=== PATIENT | female | born 1980 | race Caucasian/White ===

== ENCOUNTER 2020-12-18 17:38 | Emergency (ER) | payer BC ==
[2020-12-18] MEDS ORDERED: Sodium Chloride 0.9% 1,000 ML IV ONE (18:00)
[2020-12-18] MEDS ORDERED: Ondansetron 4 MG/2 ML SDV IVPUSH ONE (18:00)
[2020-12-18 18:57] LABS: CARBON DIOXIDE,CO2 19.9 mmol/L (21.0-32.0); POTASSIUM,K 3.7 mmol/L (3.5-5.1)
[2020-12-18] MEDS ORDERED: Calcium Chloride 10% 1 GM/10 ML Syringe IVPUSH ONE (19:12)
[2020-12-18 19:22] LABS: ACETAMINOPHEN <2.0 ug/mL
[2020-12-18] MEDS ORDERED: Calcium Carbonate 500 MG Tab.Chew PO ONE (19:46)
--- NOTE | 2020-12-18 20:25 | EDM.PDOC ---
<Amparo Garcia - Last Filed: 12/19/20 04:22> ED HPI GENERAL MEDICAL PROBLEM - General Chief Complaint: Behavioral/Psych Stated Complaint: SUICIDAL Time Seen by Provider: 12/18/20 17:50 - Related Data Allergies Allergy/AdvReac Type Severity Reaction Status Date / Time No Known Allergies Allergy Verified 12/18/20 18:03 Home Meds: Home Meds cloNIDine [Catapres] 0.1 mg PO ASDIRECTED 12/18/20 [History] Course - Re-Assessments/Exams Free Text/Narrative Re-Assessment/Exam: 12/19/20 04:23 Received the patient in signout from Natalia Farah pending alcohol clearance and sober reassessment for suicidality. The patient has been observed for many hours here. She has had no suicidal ideation throughout her hospital stay. Her alcohol level has been appropriately trending downward. Her most recent alcohol level drawn at 2:30 AM was 133. She was observed for an additional 2 hours and is clinically sober at this time. We discussed her symptoms. She reports she is not suicidal, has no thoughts to harm or kill herself. She reports she was just stating this as a gesture to her significant other and that she did not really mean it. She would like to be discharged home. Departure - Departure Time of Disposition: 04:26 Disposition: Home, Self-Care 01 Clinical Impression: Dehydration, Hypocalcemia Alcohol intoxication Qualifiers: Complication of substance-induced condition: with unspecified complication Qualified Code(s): F10.929 - Alcohol use, unspecified with intoxication, unspecified - Discharge Information Instructions: Binge-Drinking Information, Adult, Alcohol Intoxication, [id number] Referrals: PCP,None [Primary Care Provider] - Forms: ED Department Discharge Additional Instructions: Please follow-up with the psychiatry group listed on the following paper. If you develop any thoughts of hurting yourself or you start to feel suicidal, please call 911 or go to the nearest hospital. Please cut back on alcohol use. Return to the ER if you develop any other concerning or worsening symptoms. The following information is given to patients seen in the emergency department who are being discharged to home. This information is to outline your options for follow-up care. We provide all patients seen in our emergency department with a follow-up referral. The need for follow-up, as well as the timing and circumstances, are variable depending upon the specifics of your emergency department visit. If you don't have a primary care physician on staff, we will provide you with a referral. We always advise you to contact your personal physician following an emergency department visit to inform them of the circumstance of the visit and for follow-up with them and/or the need for any referrals to a consulting specialist. The emergency department will also refer you to a specialist when appropriate. This referral assures that you have the opportunity for follow-up care with a specialist. All of these measure are taken in an effort to provide you with opt imal care, which includes your follow-up. Under all circumstances we always encourage you to contact your private physician who remains a resource for coordinating your care. When calling for follow-up care, please make the office aware that this follow-up is from your recent emergency room visit. If for any reason you are refused follow-up, please contact the [facility] Emergency Department at and asked to speak to the emergency department charge nurse. [facility] [address] [place] [address] [place] [address] <Sara Farah - Last Filed: 12/19/20 10:06> ED HPI GENERAL MEDICAL PROBLEM - General Source of Information: Reports: Patient, Police History Limitations: Reports: No Limitations - History of Present Illness INITIAL COMMENTS - FREE TEXT/NARRATIVE: HISTORY AND PHYSICAL: History of present illness: Patient is a 40-year-old female presents emergency room today with law enforcement for concern of suicidal ideation. Upon arrival to the ED, patient declines suicidal ideation or plan and states that she has been ignored by her boyfriend so she was trying to get his attention so made a Facebook post telling him that she was going to kill her self. Patient states that this was stupid in retrospect and states that the only reason she had made the statement was hoping that he would start calling her and come to see her and stop ignoring her. Patient states that she has never had suicidal thoughts or a plan and states that she does not have suicidal thoughts or plan now. She has made this same story statement to myself, and nursing staff multiple times when asked multiple different ways. Patient states that she has been drinking alcohol today because she was upset with her boyfriend and states this is why she made a stupid statement such as this. Patient states that she was just saying it to get attention from her boyfriend. Patient states that she has been drinking consistently since Monday but states that she does not typically drink. Patient denies fever, chills, chest pain, shortness of breath, or cough. Denies headache, neck stiff ness, change in vision, syncope, or near syncope. Denies nausea, vomiting, abdominal pain, diarrhea, constipation, or dysuria. Has not noted any blood in urine or stool. Patient has been eating and drinking appropriately. Review of systems: As per history of present illness and below otherwise all systems reviewed and negative. Past medical history: As per history of present illness and as reviewed below otherwise noncontributory. Surgical history: As per history of present illness and as reviewed below otherwise noncontributory. Social history: See social history for further information Family history: As per history of present illness and as reviewed below otherwise noncontributory. Physical exam: General: Patient is alert, oriented, and in no acute distress. Patient laying comfortably on exam table. Patient is tachycardic 124 on exam, otherwise, vitally stable and reviewed by me. HEENT: Atraumatic, normocephalic, pupils equal and reactive bilaterally, negative for conjunctival pallor or scleral icterus, mucous membranes moist, TMs normal bilaterally, throat clear, neck supple, nontender, trachea midline. No drooling or trismus noted. No meningeal signs. No hot potato voice noted. Lungs: Clear to auscultation, breath sounds equal bilaterally, chest nontender. Heart: S1S2, regular rate and rhythm without overt murmur Abdomen: Soft, nondistended, nontender. Negative for masses or hepatosplenomegaly. Negative for costovertebral tenderness. Pelvis: Stable nontender. Genitourinary: Deferred. Rectal: Deferred. Skin: Intact, warm, dry. No lesions or rashes noted. Extremities: Atraumatic, negative for cords or calf pain. Neurovascular unremarkable. Neuro: Awake, alert, oriented. Cranial nerves II through XII unremarkable. Cerebellum unremarkable. Motor and sensory unremarkable throughout. Exam nonfocal. Notes: Patient is a 40-year-old female who resents emergency room today via law enforcement after making a statement on social media that she had wanted to kill her self. Upon arrival to the ED, patient denies any suicidal ideation or plan and states that she was merely making the statement to her boyfriend in hopes that he would pay her some attention. However, patient does state that she did write this and make the statement. Patient states that she has also been drinking, she does smell of alcohol but able to carry on a normal conversation and ambulate in the ED without assistance. Patient is placed on one-on-one observation and suicidal precautions while awaiting work-up. Mild derangements of CBC unremarkable. CMP shows hypocalcemia with corrected calcium of 7.5, otherwise mild derangements of CMP unremarkable. hCG is negative. Urinalysis shows 15 ketones with 5-9 red blood cells and 30 protein, otherwise urinalysis clear. Urine drug screen is unremarkable. Acetaminophen negative. Salicylate negative. ETOH shows alcohol intoxication at 410 I did call and speak to tele psychiatry production machine computer operator, Dr. Chairez, and thoroughly discussed patient's case. He would like patient to have a DOUG of 100 or less without suicidal ideation before discharging patient safely to home. Patient did receive 1 L normal saline bolus with improvement of her heart rate to 107. However, patient adamantly requesting the IV to be removed and does not want to receive calcium via her IV requesting it to be removed. Will give patient p.o. calcium and continue oral rehydration. Repeat ETOH 290- Dr. Garcia has assumed care of patient and will follow remaining disposition for patient Diagnostics: Mental health evaluation labs Therapeutics: Normal saline, calcium Prescription: Impression: Alcohol intoxication Hypocalcemia Dehydration Plan: Definitive disposition and diagnosis as appropriate pending reevaluation and review of above. left hand Pain Score (Numeric/FACES): 2 Past Medical History Psychiatric History: Reports: Anxiety - Infectious Disease History Infectious Disease History: Reports: None Social & Family History - Family History Family Medical History: No Pertinent Family History - Tobacco Use Tobacco Use Status *Q: Never Tobacco User - Recreational Drug Use Recreational Drug Use: No ED ROS GENERAL - Review of Systems Review Of Systems: Comprehensive ROS is negative, except as noted in HPI. ED EXAM, GENERAL - Physical Exam Exam: See Below (see dictation) Course - Vital Signs Last Recorded V/S: Last Vital Signs Temp 97.3 F 12/19/20 04:00 Pulse 98 12/19/20 04:00 Resp 18 12/19/20 04:00 BP 121/81 12/19/20 04:00 Pulse Ox 98 12/19/20 04:00 - Orders/Labs/Meds Labs: Laboratory Tests 12/18/20 12/18/20 12/18/20 Range/Units 18:30 18:30 18:30 WBC 5.81 (4.0-11.0) K/uL RBC 4.68 (4.30-5.90) M/uL Hgb 14.0 (12.0-16.0) g/dL Hct 40.7 (36.0-46.0) % MCV 87.0 (80.0-98.0) fL MCH 29.9 (27.0-32.0) pg MCHC 34.4 (31.0-37.0) g/dL RDW Std Deviation 48.1 (28.0-62.0) fl RDW Coeff of Lore 15 (11.0-15.0) % Plt Count 346 (150-400) K/uL MPV 8.90 (7.40-12.00) fL Neut % (Auto) 52.4 (48.0-80.0) % Lymph % (Auto) 43.9 H (16.0-40.0) % Mineral % (Auto) 2.4 (0.0-15.0) % Eos % (Auto) 0.3 (0.0-7.0) % Baso % (Auto) 1.0 (0.0-1.5) % Neut # (Auto) 3.0 (1.4-5.7) K/uL Lymph # (Auto) 2.6 H (0.6-2.4) K/uL Mineral # (Auto) 0.1 (0.0-0.8) K/uL Eos # (Auto) 0.0 (0.0-0.7) K/uL Baso # (Auto) 0.1 (0.0-0.1) K/uL Nucleated RBC % 0.0 /100WBC Nucleated RBCs # 0 K/uL Sodium 140 (136-145) mmol/L Potassium 3.7 (3.5-5.1) mmol/L Chloride 101 (98-107) mmol/L Carbon Dioxide 19.9 L (21.0-32.0) mmol/L BUN 10 (7.0-18.0) mg/dL Creatinine 1.1 H (0.6-1.0) mg/dL Est Cr Clr Drug Dosing 66.11 mL/min Estimated GFR (MDRD) 55.0 ml/min Glucose 93 (74-106) mg/dL Calcium 7.7 L (8.5-10.1) mg/dL Magnesium 2.0 (1.8-2.4) mg/dL Total Bilirubin 0.8 (0.2-1.0) mg/dL AST 35 (15-37) IU/L ALT 22 (14-63) IU/L Alkaline Phosphatase 93 (46-116) U/L Total Protein 7.4 (6.4-8.2) g/dL Albumin 3.7 (3.4-5.0) g/dL Globulin 3.7 (2.6-4.0) g/dL Albumin/Globulin Ratio 1.0 (0.9-1.6) Lipase 375 (73-393) U/L HCG, Qual (NEG) Urine Color Urine Appearance Urine pH (5.0-8.0) Ur Specific [place] (1.001-1.035) Urine Protein (NEGATIVE) mg/dL Urine Glucose (UA) (NEGATIVE) mg/dL Urine Ketones (NEGATIVE) mg/dL Urine Occult Blood (NEGATIVE) Urine Nitrite (NEGATIVE) Urine Bilirubin (NEGATIVE) Urine Urobilinogen (<2.0) EU/dL Ur Leukocyte Esterase (NEGATIVE) Urine RBC (0-2/HPF) Urine WBC (0-5/HPF) Ur Epithelial Cells (NONE-FEW) Urine Bacteria (NEGATIVE) Salicylates 0.7 (0-20) mg/dL Urine Opiates Screen (NEGATIVE) Ur Oxycodone Screen (NEGATIVE) Urine Methadone Screen (NEGATIVE) Acetaminophen <2.0 ug/mL Ur Barbiturates Screen (NEGATIVE) Ur Phencyclidine Scrn (NEGATIVE) Ur Amphetamine Screen (NEGATIVE) U Methamphetamines Scrn (NEGATIVE) U Benzodiazepines Scrn (NEGATIVE) U Cocaine Metab Screen (NEGATIVE) U Marijuana (THC) Screen (NEGATIVE) Ethyl Alcohol 410 mg/dL 12/18/20 12/18/20 12/18/20 Range/Units 18:30 19:09 19:09 WBC (4.0-11.0) K/uL RBC (4.30-5.90) M/uL Hgb (12.0-16.0) g/dL Hct (36.0-46.0) % MCV (80.0-98.0) fL MCH (27.0-32.0) pg MCHC (31.0-37.0) g/dL RDW Std Deviation (28.0-62.0) fl RDW Coeff of Lore (11.0-15.0) % Plt Count (150-400) K/uL MPV (7.40-12.00) fL Neut % (Auto) (48.0-80.0) % Lymph % (Auto) (16.0-40.0) % Mineral % (Auto) (0.0-15.0) % Eos % (Auto) (0.0-7.0) % Baso % (Auto) (0.0-1.5) % Neut # (Auto) (1.4-5.7) K/uL Lymph # (Auto) (0.6-2.4) K/uL Mineral # (Auto) (0.0-0.8) K/uL Eos # (Auto) (0.0-0.7) K/uL Baso # (Auto) (0.0-0.1) K/uL Nucleated RBC % /100WBC Nucleated RBCs # K/uL Sodium (136-145) mmol/L Potassium (3.5-5.1) mmol/L Chloride (98-107) mmol/L Carbon Dioxide (21.0-32.0) mmol/L BUN (7.0-18.0) mg/dL Creatinine (0.6-1.0) mg/dL Est Cr Clr Drug Dosing mL/min Estimated GFR (MDRD) ml/min Glucose (74-106) mg/dL Calcium (8.5-10.1) mg/dL Magnesium (1.8-2.4) mg/dL Total Bilirubin (0.2-1.0) mg/dL AST (15-37) IU/L ALT (14-63) IU/L Alkaline Phosphatase (46-116) U/L Total Protein (6.4-8.2) g/dL Albumin (3.4-5.0) g/dL Globulin (2.6-4.0) g/dL Albumin/Globulin Ratio (0.9-1.6) Lipase (73-393) U/L HCG, Qual NEGATIVE (NEG) Urine Color YELLOW Urine Appearance SLT CLOUDY Urine pH 6.0 (5.0-8.0) Ur Specific [place] 1.025 (1.001-1.035) Urine Protein 30 H (NEGATIVE) mg/dL Urine Glucose (UA) NEGATIVE (NEGATIVE) mg/dL Urine Ketones 15 H (NEGATIVE) mg/dL Urine Occult Blood LARGE H (NEGATIVE) Urine Nitrite NEGATIVE (NEGATIVE) Urine Bilirubin NEGATIVE (NEGATIVE) Urine Urobilinogen 0.2 (<2.0) EU/dL Ur Leukocyte Esterase NEGATIVE (NEGATIVE) Urine RBC 5-9 (0-2/HPF) Urine WBC 0-2 (0-5/HPF) Ur Epithelial Cells MODERATE (NONE-FEW) Urine Bacteria FEW (NEGATIVE) Salicylates (0-20) mg/dL Urine Opiates Screen NEGATIVE (NEGATIVE) Ur Oxycodone Screen NEGATIVE (NEGATIVE) Urine Methadone Screen NEGATIVE (NEGATIVE) Acetaminophen ug/mL Ur Barbiturates Screen NEGATIVE (NEGATIVE) Ur Phencyclidine Scrn NEGATIVE (NEGATIVE) Ur Amphetamine Screen NEGATIVE (NEGATIVE) U Methamphetamines Scrn NEGATIVE (NEGATIVE) U Benzodiazepines Scrn NEGATIVE (NEGATIVE) U Cocaine Metab Screen NEGATIVE (NEGATIVE) U Marijuana (THC) Screen NEGATIVE (NEGATIVE) Ethyl Alcohol mg/dL 12/18/20 12/19/20 Range/Units 21:49 02:30 WBC (4.0-11.0) K/uL RBC (4.30-5.90) M/uL Hgb (12.0-16.0) g/dL Hct (36.0-46.0) % MCV (80.0-98.0) fL MCH (27.0-32.0) pg MCHC (31.0-37.0) g/dL RDW Std Deviation (28.0-62.0) fl RDW Coeff of Lore (11.0-15.0) % Plt Count (150-400) K/uL MPV (7.40-12.00) fL Neut % (Auto) (48.0-80.0) % Lymph % (Auto) (16.0-40.0) % Mineral % (Auto) (0.0-15.0) % Eos % (Auto) (0.0-7.0) % Baso % (Auto) (0.0-1.5) % Neut # (Auto) (1.4-5.7) K/uL Lymph # (Auto) (0.6-2.4) K/uL Mineral # (Auto) (0.0-0.8) K/uL Eos # (Auto) (0.0-0.7) K/uL Baso # (Auto) (0.0-0.1) K/uL Nucleated RBC % /100WBC Nucleated RBCs # K/uL Sodium (136-145) mmol/L Potassium (3.5-5.1) mmol/L Chloride (98-107) mmol/L Carbon Dioxide (21.0-32.0) mmol/L BUN (7.0-18.0) mg/dL Creatinine (0.6-1.0) mg/dL Est Cr Clr Drug Dosing mL/min Estimated GFR (MDRD) ml/min Glucose (74-106) mg/dL Calcium (8.5-10.1) mg/dL Magnesium (1.8-2.4) mg/dL Total Bilirubin (0.2-1.0) mg/dL AST (15-37) IU/L ALT (14-63) IU/L Alkaline Phosphatase (46-116) U/L Total Protein (6.4-8.2) g/dL Albumin (3.4-5.0) g/dL Globulin (2.6-4.0) g/dL Albumin/Globulin Ratio (0.9-1.6) Lipase (73-393) U/L HCG, Qual (NEG) Urine Color Urine Appearance Urine pH (5.0-8.0) Ur Specific [place] (1.001-1.035) Urine Protein (NEGATIVE) mg/dL Urine Glucose (UA) (NEGATIVE) mg/dL Urine Ketones (NEGATIVE) mg/dL Urine Occult Blood (NEGATIVE) Urine Nitrite (NEGATIVE) Urine Bilirubin (NEGATIVE) Urine Urobilinogen (<2.0) EU/dL Ur Leukocyte Esterase (NEGATIVE) Urine RBC (0-2/HPF) Urine WBC (0-5/HPF) Ur Epithelial Cells (NONE-FEW) Urine Bacteria (NEGATIVE) Salicylates (0-20) mg/dL Urine Opiates Screen (NEGATIVE) Ur Oxycodone Screen (NEGATIVE) Urine Methadone Screen (NEGATIVE) Acetaminophen ug/mL Ur Barbiturates Screen (NEGATIVE) Ur Phencyclidine Scrn (NEGATIVE) Ur Amphetamine Screen (NEGATIVE) U Methamphetamines Scrn (NEGATIVE) U Benzodiazepines Scrn (NEGATIVE) U Cocaine Metab Screen (NEGATIVE) U Marijuana (THC) Screen (NEGATIVE) Ethyl Alcohol 292 133 mg/dL Meds: Medications Discontinued Medications Generic Name Dose Route Start Last Admin Trade Name Freq PRN Reason Stop Dose Admin Acetaminophen 1,000 mg 12/18/20 22:03 12/18/20 22:55 Acetaminophen 500 Mg Tab PO 12/18/20 22:04 1,000 mg ONETIME ONE Administration Calcium Carbonate/Glycine 1,000 mg 12/18/20 19:46 12/18/20 19:58 Calcium Carbonate 500 Mg Tab.Chew PO 12/18/20 19:47 1,000 mg ONETIME ONE Administration Calcium Chloride 1 gm 12/18/20 19:12 12/18/20 19:58 Calcium Chloride 10% 1 Gm/10 Ml Syringe IVPUSH 12/18/20 19:13 Not Given ONETIME ONE Sodium Chloride 1,000 mls @ 999 mls/hr 12/18/20 18:00 12/18/20 18:26 Normal Saline IV 12/18/20 19:00 999 mls/hr STAT ONE Administration Lorazepam 1 mg 12/18/20 22:26 12/18/20 22:55 Lorazepam 1 Mg Tab PO 12/18/20 22:27 1 mg NOW STA Administration Lorazepam 1 mg 12/19/20 01:44 12/19/20 01:58 Lorazepam 2 Mg/Ml Sdv IM 12/19/20 01:45 1 mg ONETIME ONE Administration Ondansetron HCl 4 mg 12/18/20 18:00 12/18/20 18:26 Ondansetron 4 Mg/2 Ml Sdv IVPUSH 12/18/20 18:01 4 mg ONETIME ONE Administration Sepsis Event Note (ED) - Evaluation Sepsis Screening Result: No Definite Risk - Focused Exam Vital Signs: Vital Signs Temp Pulse Resp BP Pulse Ox 12/19/20 04:00 97.3 F 98 18 121/81 98 12/19/20 03:44 97.3 F 100 18 114/68 97 12/19/20 03:10 102 H 18 119/69 98 12/19/20 02:00 110 H 16 117/69 98 12/19/20 01:30 107 H 16 113/77 96 12/19/20 01:00 98 16 108/70 98 12/19/20 00:30 115 H 16 113/71 96 12/19/20 00:00 102 H 16 122/72 96 12/18/20 23:30 125 H 16 110/68 96 12/18/20 23:00 107 H 16 118/78 99 12/18/20 22:30 105 H 16 116/72 96
[2020-12-18] MEDS ORDERED: Acetaminophen 500 MG Tab PO ONE (22:03)
[2020-12-18] MEDS ORDERED: LORazepam 1 MG Tab PO STA (22:26)
[2020-12-19] MEDS ORDERED: LORazepam 2 MG/ML SDV IM ONE (01:44)
== END 2020-12-19 04:35 | disposition home or self-care (01) ==
LOC: MW.ED 17:38
DX: F10.129 Alcohol abuse with intoxication, unspecified (principal); E86.0 Dehydration; E83.51 Hypocalcemia; Y90.6 Blood alcohol level of 120-199 mg/100 ml
CPT/HCPCS: 36415; 80053; 80143; 80179; 80305; 80307; 81001; 83690; 83735; 84703; 85025; 93005; 96372; 96374; 99284; A9270; J2060; J2405; J7030

== ENCOUNTER 2020-12-23 08:54 | Emergency (ER) | payer BC ==
[2020-12-23] MEDS ORDERED: LORazepam 2 MG/ML SDV IVPUSH ONE (09:06)
[2020-12-23] MEDS ORDERED: Sodium Chloride 0.9% 2.5 ML Syringe FLUSH PRN (09:06)
[2020-12-23] MEDS ORDERED: Ondansetron 4 MG/2 ML SDV IVPUSH ONE ×2 (09:06→11:00)
[2020-12-23] MEDS ORDERED: Sodium Chloride 0.9% 1,000 ML IV ONE (09:06)
[2020-12-23] MEDS ORDERED: Sodium Chloride 0.9% 10 ML Syringe FLUSH PRN (09:06)
--- NOTE | 2020-12-23 09:17 | EDM.PDOC ---
ED HPI GENERAL MEDICAL PROBLEM - General Chief Complaint: General Stated Complaint: DEHYDRATION Time Seen by Provider: 12/23/20 08:56 Source of Information: Reports: Patient History Limitations: Reports: No Limitations - History of Present Illness INITIAL COMMENTS - FREE TEXT/NARRATIVE: 40F PMHx alcohol abuse, anxiety, pancreatitis presents for multiple complaints. Patient was seen recently for depression/suicidal ideation. Patient states that she doesn't drink daily but does struggle with periods of heavy alcohol use. Last drink was last night. Patient has been through EtOH w/d before. She notes feeling shaky, anxious, nauseated, and heart racing sensation "like it's gonna explode." She denies vomiting. She denies chest pain or SOB. She recently moved to [place]. Her father recently from COVID-19 infection. Bilateral Abdomen Pain Score (Numeric/FACES): 8 - Related Data Allergies Allergy/AdvReac Type Severity Reaction Status Date / Time No Known Allergies Allergy Verified 12/23/20 09:21 Home Meds: Home Meds cloNIDine [Catapres] 0.1 mg PO ASDIRECTED 12/18/20 [History] Ondansetron [Zofran ODT] 4 mg PO Q6H PRN #12 tab.dis 12/23/20 [Rx] Past Medical History Psychiatric History: Reports: Anxiety - Infectious Disease History Infectious Disease History: Reports: None Social & Family History - Family History Family Medical History: No Pertinent Family History ED ROS GENERAL - Review of Systems Review Of Systems: Comprehensive ROS is negative, except as noted in HPI. ED EXAM, GENERAL - Physical Exam Exam: See Below Exam Limited By: No Limitations General Appearance: Alert, WD/WN, No Apparent Distress, Anxious Ears: Hearing Grossly Normal Throat/Mouth: Normal Voice, No Airway Compromise Head: Atraumatic, Normocephalic Neck: Normal Inspection Respiratory/Chest: No Respiratory Distress, Lungs Clear, Normal Breath Sounds, No Accessory Muscle Use Cardiovascular: Normal Peripheral Pulses, No Edema, Tachycardia GI/Abdominal: Soft, Non-Tender Extremities: Normal Inspection Neurological: Alert, Normal Cognition, Normal Gait Psychiatric: Normal Affect, Normal Mood Skin Exam: Warm, Dry, Intact, Normal Color #1 Interpretation EKG Date: 12/23/20 Time: 09:02 Rhythm: NSR Rate (Beats/Min): 108 [place]: Normal P-Wave: Present QRS: Normal ST-T: Normal QT: Normal NE/PQ Interval: 134 EKG Interpretation Comments: Normal EKG Course - Vital Signs Last Recorded V/S: Last Vital Signs Temp 98.2 F 12/23/20 10:56 Pulse 91 12/23/20 10:56 Resp 18 12/23/20 10:56 BP 112/74 12/23/20 10:56 Pulse Ox 100 12/23/20 10:56 - Orders/Labs/Meds Orders: Active Orders 24 hr Category Date Time Status Blood Glucose Check, Bedside [RC] ONETIME Care 12/23/20 09:06 Active EKG Documentation Completion [RC] STAT Care 12/23/20 09:06 Active DRUG SCREEN, URINE [URCHEM] Stat Lab 12/23/20 10:08 Ordered Magnesium Oxide Med 12/23/20 11:00 Once 800 mg PO ONETIME ONE Magnesium Sulfate/Water [Magnesium Sulfate in Water 2 Med 12/23/20 10:41 Stop Req GM/50 ML] 2 gm Premix Bag 1 bag IV ONETIME Ondansetron [Zofran] Med 12/23/20 11:00 Once 4 mg IVPUSH ONETIME ONE Potassium Chloride [Klor-Con M20] Med 12/23/20 11:00 Once 40 meq PO ONETIME ONE Sodium Chloride 0.9% [Saline Flush] Med 12/23/20 09:06 Active 10 ml FLUSH ASDIRECTED PRN Sodium Chloride 0.9% [Saline Flush] Med 12/23/20 09:06 Active 2.5 ml FLUSH ASDIRECTED PRN Saline Lock Insert [OM.PC] Stat Oth 12/23/20 09:06 Ordered Medication Orders Magnesium Sulfate 2 gm/ Premix 50 mls @ 50 mls/hr IV ONETIME ONE Stop: 12/23/20 11:40 Sodium Chloride (Sodium Chloride 0.9% 10 Ml Syringe) 10 ml FLUSH ASDIRECTED PRN PRN Reason: Keep Vein Open Last Admin: 12/23/20 09:47 Dose: 10 ml Documented by: AALIYAH Sodium Chloride (Sodium Chloride 0.9% 2.5 Ml Syringe) 2.5 ml FLUSH ASDIRECTED PRN PRN Reason: Keep Vein Open Last Admin: 12/23/20 09:47 Dose: 2.5 ml Documented by: AALIYAH Labs: Laboratory Tests 12/23/20 12/23/20 12/23/20 Range/Units 09:31 09:31 09:31 WBC (4.0-11.0) K/uL RBC (4.30-5.90) M/uL Hgb (12.0-16.0) g/dL Hct (36.0-46.0) % MCV (80.0-98.0) fL MCH (27.0-32.0) pg MCHC (31.0-37.0) g/dL RDW Std Deviation (28.0-62.0) fl RDW Coeff of Lore (11.0-15.0) % Plt Count (150-400) K/uL MPV (7.40-12.00) fL Neut % (Auto) (48.0-80.0) % Lymph % (Auto) (16.0-40.0) % [place] % (Auto) (0.0-15.0) % Eos % (Auto) (0.0-7.0) % Baso % (Auto) (0.0-1.5) % Neut # (Auto) (1.4-5.7) K/uL Lymph # (Auto) (0.6-2.4) K/uL [place] # (Auto) (0.0-0.8) K/uL Eos # (Auto) (0.0-0.7) K/uL Baso # (Auto) (0.0-0.1) K/uL Nucleated RBC % /100WBC Nucleated RBCs # K/uL Sodium (136-145) mmol/L Potassium (3.5-5.1) mmol/L Chloride (98-107) mmol/L Carbon Dioxide (21.0-32.0) mmol/L BUN (7.0-18.0) mg/dL Creatinine (0.6-1.0) mg/dL Est Cr Clr Drug Dosing mL/min Estimated GFR (MDRD) ml/min Glucose (74-106) mg/dL POC Glucose (70-99) mg/dL Calcium (8.5-10.1) mg/dL Magnesium (1.8-2.4) mg/dL Total Bilirubin (0.2-1.0) mg/dL AST (15-37) IU/L ALT (14-63) IU/L Alkaline Phosphatase (46-116) U/L Troponin I (0.000-0.056) ng/mL Total Protein (6.4-8.2) g/dL Albumin (3.4-5.0) g/dL Globulin (2.6-4.0) g/dL Albumin/Globulin Ratio (0.9-1.6) Lipase (73-393) U/L TSH, Ultra Sensitive (0.36-3.74) uIU/mL Urine Color DARK YELLOW Urine Appearance CLOUDY Urine pH 6.5 (5.0-8.0) Ur Specific [place] 1.020 (1.001-1.035) Urine Protein 30 H (NEGATIVE) mg/dL Urine Glucose (UA) NEGATIVE (NEGATIVE) mg/dL Urine Ketones TRACE H (NEGATIVE) mg/dL Urine Occult Blood MODERATE H (NEGATIVE) Urine Nitrite NEGATIVE (NEGATIVE) Urine Bilirubin NEGATIVE (NEGATIVE) Urine Urobilinogen 1.0 (<2.0) EU/dL Ur Leukocyte Esterase NEGATIVE (NEGATIVE) Urine RBC 0-2 (0-2/HPF) Urine WBC 8-11 (0-5/HPF) Ur Epithelial Cells MODERATE (NONE-FEW) Urine Bacteria 1+ H (NEGATIVE) Urine Mucus LIGHT (NONE-MOD) Urine HCG, Qual NEGATIVE (NEGATIVE) Urine Opiates Screen NEGATIVE (NEGATIVE) Ur Oxycodone Screen NEGATIVE (NEGATIVE) Urine Methadone Screen NEGATIVE (NEGATIVE) Ur Barbiturates Screen NEGATIVE (NEGATIVE) Ur Phencyclidine Scrn NEGATIVE (NEGATIVE) Ur Amphetamine Screen NEGATIVE (NEGATIVE) U Methamphetamines Scrn NEGATIVE (NEGATIVE) U Benzodiazepines Scrn NEGATIVE (NEGATIVE) U Cocaine Metab Screen NEGATIVE (NEGATIVE) U Marijuana (THC) Screen NEGATIVE (NEGATIVE) Ethyl Alcohol mg/dL 12/23/20 12/23/20 12/23/20 Range/Units 09:40 09:40 10:06 WBC 6.59 (4.0-11.0) K/uL RBC 4.10 L (4.30-5.90) M/uL Hgb 12.3 (12.0-16.0) g/dL Hct 35.2 L (36.0-46.0) % MCV 85.9 (80.0-98.0) fL MCH 30.0 (27.0-32.0) pg MCHC 34.9 (31.0-37.0) g/dL RDW Std Deviation 45.6 (28.0-62.0) fl RDW Coeff of Lore 15 (11.0-15.0) % Plt Count 183 (150-400) K/uL MPV 9.50 (7.40-12.00) fL Neut % (Auto) 69.0 (48.0-80.0) % Lymph % (Auto) 26.1 (16.0-40.0) % [place] % (Auto) 4.2 (0.0-15.0) % Eos % (Auto) 0.2 (0.0-7.0) % Baso % (Auto) 0.5 (0.0-1.5) % Neut # (Auto) 4.6 (1.4-5.7) K/uL Lymph # (Auto) 1.7 (0.6-2.4) K/uL [place] # (Auto) 0.3 (0.0-0.8) K/uL Eos # (Auto) 0.0 (0.0-0.7) K/uL Baso # (Auto) 0.0 (0.0-0.1) K/uL Nucleated RBC % 0.0 /100WBC Nucleated RBCs # 0 K/uL Sodium 134 L (136-145) mmol/L Potassium 2.9 L (3.5-5.1) mmol/L Chloride 97 L (98-107) mmol/L Carbon Dioxide 27.6 (21.0-32.0) mmol/L BUN 10 (7.0-18.0) mg/dL Creatinine 1.1 H (0.6-1.0) mg/dL Est Cr Clr Drug Dosing 58.71 mL/min Estimated GFR (MDRD) 55.0 ml/min Glucose 137 H (74-106) mg/dL POC Glucose 127 H (70-99) mg/dL Calcium 8.0 L (8.5-10.1) mg/dL Magnesium 1.4 L (1.8-2.4) mg/dL Total Bilirubin 0.9 (0.2-1.0) mg/dL AST 33 (15-37) IU/L ALT 22 (14-63) IU/L Alkaline Phosphatase 84 (46-116) U/L Troponin I < 0.050 (0.000-0.056) ng/mL Total Protein 6.7 (6.4-8.2) g/dL Albumin 3.3 L (3.4-5.0) g/dL Globulin 3.4 (2.6-4.0) g/dL Albumin/Globulin Ratio 1.0 (0.9-1.6) Lipase 1737 H (73-393) U/L TSH, Ultra Sensitive 1.40 (0.36-3.74) uIU/mL Urine Color Urine Appearance Urine pH (5.0-8.0) Ur Specific [place] (1.001-1.035) Urine Protein (NEGATIVE) mg/dL Urine Glucose (UA) (NEGATIVE) mg/dL Urine Ketones (NEGATIVE) mg/dL Urine Occult Blood (NEGATIVE) Urine Nitrite (NEGATIVE) Urine Bilirubin (NEGATIVE) Urine Urobilinogen (<2.0) EU/dL Ur Leukocyte Esterase (NEGATIVE) Urine RBC (0-2/HPF) Urine WBC (0-5/HPF) Ur Epithelial Cells (NONE-FEW) Urine Bacteria (NEGATIVE) Urine Mucus (NONE-MOD) Urine HCG, Qual (NEGATIVE) Urine Opiates Screen (NEGATIVE) Ur Oxycodone Screen (NEGATIVE) Urine Methadone Screen (NEGATIVE) Ur Barbiturates Screen (NEGATIVE) Ur Phencyclidine Scrn (NEGATIVE) Ur Amphetamine Screen (NEGATIVE) U Methamphetamines Scrn (NEGATIVE) U Benzodiazepines Scrn (NEGATIVE) U Cocaine Metab Screen (NEGATIVE) U Marijuana (THC) Screen (NEGATIVE) Ethyl Alcohol < 3.0 mg/dL Meds: Medications Generic Name Dose Route Start Last Admin Trade Name Freq PRN Reason Stop Dose Admin Magnesium Sulfate 2 gm/ Premix 50 mls @ 50 mls/hr 12/23/20 10:41 IV 12/23/20 11:40 ONETIME ONE Sodium Chloride 10 ml 12/23/20 09:06 12/23/20 09:47 Sodium Chloride 0.9% 10 Ml Syringe FLUSH 10 ml ASDIRECTED PRN Administration Keep Vein Open Sodium Chloride 2.5 ml 12/23/20 09:06 12/23/20 09:47 Sodium Chloride 0.9% 2.5 Ml Syringe FLUSH 2.5 ml ASDIRECTED PRN Administration Keep Vein Open Discontinued Medications Generic Name Dose Route Start Last Admin Trade Name Freq PRN Reason Stop Dose Admin Sodium Chloride 1,000 mls @ 999 mls/hr 12/23/20 09:06 12/23/20 09:47 Normal Saline IV 12/23/20 10:06 999 mls/hr .Bolus ONE Administration Potassium Chloride 40 meq/ 100 mls @ 25 mls/hr 12/23/20 10:41 Premix IV 12/23/20 14:40 ONETIME ONE Lorazepam 2 mg 12/23/20 09:06 12/23/20 09:46 Lorazepam 2 Mg/Ml Sdv IVPUSH 12/23/20 09:07 2 mg ONETIME ONE Administration Magnesium Oxide 800 mg 12/23/20 11:00 Magnesium Oxide 400 Mg Tab PO 12/23/20 11:01 ONETIME ONE Ondansetron HCl 4 mg 12/23/20 09:06 12/23/20 09:46 Ondansetron 4 Mg/2 Ml Sdv IVPUSH 12/23/20 09:07 4 mg ONETIME ONE Administration Ondansetron HCl 4 mg 12/23/20 11:00 Ondansetron 4 Mg/2 Ml Sdv IVPUSH 12/23/20 11:01 ONETIME ONE Potassium Chloride 40 meq 12/23/20 11:00 Potassium Chloride 20 Meq Tab.Er PO 12/23/20 11:01 ONETIME ONE - Re-Assessments/Exams Free Text/Narrative Re-Assessment/Exam: 12/23/20 09:19 CIWA = 6; patient presents with several complaints which could be related to mild alcohol withdrawal. Will get labs, will treat symptomatically 12/23/20 10:45 Patient's labs are remarkable for hypokalemia, hypomagnesemia, elevated lipase. I explained to patient that she has pancreatitis and recommended that she stay in the hospital for treatment. Patient declines admission at this time. She has not required any analgesia, so I do believe it is reasonable to send her home with antiemetics and instructions for clear liquid diet for the next several days, PMD follow-up. Return precautions were discussed at length and patient was encouraged to return to the emergency department for inability to tolerate p.o. or worsening abdominal pain. We will get patient potassium and magnesium in the emergency department prior to discharge. 12/23/20 11:01 Patient declines IV potassium magnesium. Will give p.o. Departure - Departure Time of Disposition: 11:01 Disposition: Home, Self-Care 01 Condition: Fair Clinical Impression: Pancreatitis Qualifiers: Chronicity: acute Pancreatitis type: unspecified pancreatitis type Acute pancreatitis complication: unspecified Qualified Code(s): K85.90 - Acute panc reatitis without necrosis or infection, unspecified - Discharge Information Prescriptions: Ondansetron [Zofran ODT] 4 mg PO Q6H PRN #12 tab.dis PRN Reason: Nausea Instructions: Pancreatitis Eating Plan, Acute Pancreatitis Referrals: PCP,None [Primary Care Provider] - Forms: ED Department Discharge Additional Instructions: The following information is given to patients seen in the emergency department who are being discharged to home. This information is to outline your options for follow-up care. We provide all patients seen in our emergency department with a follow-up referral. The need for follow-up, as well as the timing and circumstances, are variable depending upon the specifics of your emergency department visit. If you don't have a primary care physician on staff, we will provide you with a referral. We always advise you to contact your personal physician following an emergency department visit to inform them of the circumstance of the visit and for follow-up with them and/or the need for any referrals to a consulting specialist. The emergency department will also refer you to a specialist when appropriate. This referral assures that you have the opportunity for follow-up care with a specialist. All of these measure are taken in an effort to provide you with optimal care, which includes your follow-up. Under all circumstances we always encourage you to contact your private physician who remains a resource for coordinating your care. When calling for follow-up care, please make the office aware that this follow-up is from your recent emergency room visit. If for any reason you are refused follow-up, please contact the [facility] Department at and asked to speak to the emergency department charge nurse. Please follow up with your primary care physician. If you do not have a primary care physician, see below: [facility] [address] [place] [id number] [address] [facility] [address] [place] [address], [place] [id number] Sepsis Event Note (ED) - Focused Exam Vital Signs: Vital Signs Temp Pulse Resp BP Pulse Ox 12/23/20 10:56 98.2 F 91 18 112/74 100 12/23/20 09:57 88 17 103/73 100 12/23/20 09:20 98.1 F 104 H 18 129/85 98 - My Orders Last 24 Hours: My Active Orders 12/23/20 09:06 Blood Glucose Check, Bedside [RC] ONETIME EKG Documentation Completion [RC] STAT Sodium Chloride 0.9% [Saline Flush] 10 ml FLUSH ASDIRECTED PRN Sodium Chloride 0.9% [Saline Flush] 2.5 ml FLUSH ASDIRECTED PRN Saline Lock Insert [OM.PC] Stat 12/23/20 10:08 DRUG SCREEN, URINE [URCHEM] Stat 12/23/20 10:41 Magnesium Sulfate/Water [Magnesium Sulfate in Water 2 GM/50 ML] 2 gm Premix Bag 1 bag IV ONETIME 12/23/20 11:00 Ondansetron [Zofran] 4 mg IVPUSH ONETIME ONE Potassium Chloride [Klor-Con M20] 40 meq PO ONETIME ONE - Assessment/Plan Last 24 Hours: My Active Orders 12/23/20 09:06 Blood Glucose Check, Bedside [RC] ONETIME EKG Documentation Completion [RC] STAT Sodium Chloride 0.9% [Saline Flush] 10 ml FLUSH ASDIRECTED PRN Sodium Chloride 0.9% [Saline Flush] 2.5 ml FLUSH ASDIRECTED PRN Saline Lock Insert [OM.PC] Stat 12/23/20 10:08 DRUG SCREEN, URINE [URCHEM] Stat 12/23/20 10:41 Magnesium Sulfate/Water [Magnesium Sulfate in Water 2 GM/50 ML] 2 gm Premix Bag 1 bag IV ONETIME 12/23/20 11:00 Ondansetron [Zofran] 4 mg IVPUSH ONETIME ONE Potassium Chloride [Klor-Con M20] 40 meq PO ONETIME ONE
[2020-12-23 10:26] LABS: BLOOD UREA NITROGEN,BUN 10 mg/dL (7.0-18.0); CARBON DIOXIDE,CO2 27.6 mmol/L (21.0-32.0); CHLORIDE,CL 97 mmol/L (98-107); GLUCOSE RANDOM 137 mg/dL (74-106); LIPASE 1737 U/L (73-393); POTASSIUM,K 2.9 mmol/L (3.5-5.1); SODIUM,NA 134 mmol/L (136-145)
[2020-12-23] MEDS ORDERED: Potassium Chloride Riders 40 MEQ in Premix Bag 1 BAG IV ONE (10:41)
[2020-12-23] MEDS ORDERED: Magnesium Sulfate/Water 2 GM in Premix Bag 1 BAG IV ONE (10:41)
[2020-12-23] MEDS ORDERED: Magnesium Oxide 400 MG Tab PO ONE (11:00)
[2020-12-23] MEDS: Potassium Chloride 20 MEQ Tab.ER PO ONE (11:11)
[2020-12-24] MEDS: Potassium Chloride 20 MEQ Tab.ER PO ONE (07:29)
== END 2020-12-23 12:00 | disposition left against medical advice (07) ==
LOC: MW.ED 08:54
DX: K85.90 Acute pancreatitis without necrosis or infection, unspecified (principal)
CPT/HCPCS: 36415; 80053; 80305; 80307; 81001; 81025; 82947; 83690; 83735; 84443; 84484; 85025; 93005; 96374; 96375; 96376; 99284; A9270; J2060; J2405; J7030